=== PATIENT | male | born 1955 | race Caucasian/White ===

== ENCOUNTER 2017-06-05 10:32 | Emergency (ER) | payer SELFPAY ==
[2017-06-05 11:12] LABS: BASOPHILS 0.8 % (0-2); EOSINOPHILS 2.9 % (0-7); HEMATOCRIT 45.1 % (42.0-54.0); HEMOGLOBIN 15.9 g/dL (13.5-17.5); IMMATURE GRANULOCYTES 0.2 % (0-5); LYMPHOCYTES 20.1 % (15-50); MCH 35.3 pg (26.0-34.0); MCHC 35.3 g/dL (31.0-37.0); MEAN PLATELET VOLUME 9.8 fL (7.4-10.4); MONOCYTES 8.8 % (2-11); NEUTROPHILS 67.2 % (40-80); PLATELET COUNT 266 10x3/uL (130-400); RBC 4.51 10x6/uL (4.20-6.10); RDW 13.3 % (11.5-14.5)
[2017-06-05 11:26] LABS: ALBUMIN 3.6 g/dL (3.4-5.0); ALKALINE PHOSPHATASE 110 U/L (46-116); ALT (SGPT) 26 U/L (10-68); CALC OSMOLALITY 275 mosm/kg (275-300); CALCIUM 8.8 mg/dL (8.5-10.1); CARBON DIOXIDE 30.8 mmol/L (21.0-32.0); CHLORIDE - SERUM 102 mmol/L (98-107); GLUCOSE 88 mg/dL (74-106); POTASSIUM - SERUM 3.7 mmol/L (3.5-5.1); PROTEIN - SERUM 7.1 g/dL (6.4-8.2); SODIUM 139 mmol/L (136-145); UREA NITROGEN 10 mg/dL (7-18); eGFR NON AFRICAN AMERICAN 81 mL/min (90-120)
[2017-06-05 11:38] LABS: AMYLASE - SERUM 59 U/L (25-115); CKMB 0.7 U/L (0.0-3.6); CREATINE KINASE 123 UL (21-232); LIPASE 206 U/L (73-393); MAGNESIUM - SERUM 2.1 mg/dL (1.8-2.4); TROPONIN-I < 0.017 ng/mL (0.000-0.060)
[2017-06-05 11:55] LABS: APPEARANCE HAZY (CLEAR); BILIRUBIN NEGATIVE (NEGATIVE); COLOR DK YELLOW (YELLOW); GLUCOSE NEGATIVE (NEGATIVE); KETONE NEGATIVE (NEGATIVE); LEUKOCYTE ESTERASE NEGATIVE (NEGATIVE); NITRITE NEGATIVE (NEGATIVE); PROTEIN NEGATIVE (NEGATIVE); SPECIFIC GRAVITY 1.025 (1.005-1.020)
== END 2017-06-05 13:51 | disposition home or self-care (01) ==
LOC: D.ER 10:32
PROVIDERS: Nurse Practitioner Family
DX: E86.0 Dehydration (principal); R53.1 Weakness; R11.0 Nausea; I10 Essential (primary) hypertension; I44.60 Unspecified fascicular block

== ENCOUNTER 2017-08-12 09:12 | Emergency (ER) | payer SELFPAY | END 2017-08-12 12:07 | disposition home or self-care (01) | LOC: D.ER 09:12 | DX: M54.5 Low back pain (principal); I10 Essential (primary) hypertension; F17.200 Nicotine dependence, unspecified, uncomplicated ==